=== PATIENT | female | born 1980 | race African-American/Black ===

== ENCOUNTER 2019-08-07 09:57 | Emergency (ER) | payer OTHER ==
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
[2019-08-07 10:05] VITALS: BP 147/93; PULSE 89; TEMP 98.8; BMI 35.2
[2019-08-07] MEDS ORDERED: LIDOCAINE 5% TOPICAL PATCH TP ONE (10:12)
[2019-08-07] MEDS ORDERED: ACETAMINOPHEN 325 MG TABLET (FP) PO ONE (10:18)
[2019-08-07] MEDS ORDERED: LIDOCAINE 5% TOPICAL PATCH ONE (10:19)
[2019-08-07] MEDS ORDERED: ACETAMINOPHEN 325 MG TABLET (FP) ONE (10:22)
[2019-08-07 10:48] LABS: EPITHELIAL CELLS FEW /hpf
[2019-08-07] MEDS ORDERED: LIDOCAINE PATCH REMOVAL MC SCH (22:00)
== END 2019-08-07 12:35 | disposition home or self-care (01) ==
LOC: FER 09:57
DX: S16.1XXA Strain of muscle, fascia and tendon at neck level, initial encounter (principal); V43.52XA Car driver injured in collision with other type car in traffic accident, initial encounter; Y93.89 Activity, other specified; Y92.410 Unspecified street and highway as the place of occurrence of the external cause; I10 Essential (primary) hypertension
CPT/HCPCS: 71045-TC-FY; 72125-TC; 81003; 81015; 84703; 99283-25